=== PATIENT | female | born 2000 | race African-American/Black ===

== ENCOUNTER 2019-07-13 21:02 | Emergency (ER) | payer OTHER ==
[~2019-07-13] VITALS: Ht 157.5 cm; Wt 51.2 kg
[2019-07-13] MEDS ORDERED: VENTAER INH (21:36)
[2019-07-13] MEDS ORDERED: ONDANSETRON 4MG/2ML VIAL (J2405) IV ONE (22:45)
[2019-07-13] MEDS ORDERED: NS 1,000 ML IV ONE (22:45)
[2019-07-13 23:10] LABS: HEMATOCRIT 37.5 % (36.0-47.0); HEMOGLOBIN 12.8 g/dl (12.0-15.5); MEAN CORPUSCULAR HEMOGLOBIN 31.1 pg (27.0-33.0); MEAN CORPUSCULAR HGB CONC 34.1 g/dl (32.0-36.5); PLATELET COUNT, AUTOMATED 225 10^3/uL (150-450); RED BLOOD COUNT 4.12 10^6/uL (4.00-5.40); WHITE BLOOD COUNT 7.2 10^3/uL (4.0-10.0)
[2019-07-13 23:57] LABS: BLOOD UREA NITROGEN 11 MG/DL (7-18); CALCIUM LEVEL 9.7 MG/DL (8.5-10.1); CARBON DIOXIDE LEVEL 21 MEQ/L (21-32); CHLORIDE LEVEL 106 MEQ/L (98-107); CREATININE FOR GFR 0.53 MG/DL (0.55-1.30); GLUCOSE, FASTING 59 MG/DL (70-100); HCG, SERUM QUANTITATIVE 125407 MIU/ML; SODIUM LEVEL 138 MEQ/L (136-145)
[2019-07-14 00:43] LABS: APPEARANCE, URINE HAZY (CLEAR); BACTERIA, URINE AUTO NEGATIVE (NEGATIVE); BILIRUBIN, URINE AUTO NEGATIVE (NEGATIVE); BLOOD, URINE BLOOD NEGATIVE (NEGATIVE); COLOR, URINE YELLOW (YELLOW); GLUCOSE, URINE (UA) AUTO NEGATIVE (NEGATIVE); KETONE, URINE AUTO 2+ mg/dL (NEGATIVE); LEUKOCYTE ESTERASE, URINE AUTO NEGATIVE (NEGATIVE); MUCUS, URINE MODERATE (NEGATIVE); NITRITE, URINE AUTO NEGATIVE (NEGATIVE); PROTEIN, URINE AUTO 1+ mg/dL (NEGATIVE); RBC, URINE AUTO 2 /HPF (0-3); SPECIFIC GRAVITY URINE AUTO 1.028 (1.002-1.035); SQUAMOUS EPITHELIAL CELL UR AU 6 /HPF (0-6); UROBILINOGEN, URINE AUTO 0.2 mg/dL (0.0-2.0); WBC, URINE AUTO 1 /HPF (0-3)
--- NOTE | 2019-07-14 01:05 | REPVR ---
EXAM: US First Trimester, Transabdominal EXAM DATE/TIME: 07/13/2019 12:00 AM CLINICAL HISTORY: 19 years old, female; complicated by abdominal or pelvic pain; Generalized abdominal pain; First trimester; Gestational age or LMP: lmp 05/13/19; TECHNIQUE: Imaging protocol: Real-time transabdominal obstetrical ultrasound of the maternal pelvis and a first trimester , less than 14 weeks 0 days, with image documentation. COMPARISON: No relevant prior studies available. FINDINGS: GESTATION: Gestation: Single live intrauterine gestation. Heart rate: heart rate measures 171 beats per minute. Placenta: Unremarkable. No subchorionic bleed. Amniotic fluid: Amniotic and chorionic fluid are normal for gestational age. BIOMETRY: Estimated gestational age: Estimated gestational age is 9 weeks 4 days. [place]-Rump length: [place]-rump length is 2.8 cm. Estimated due date: Estimated due date is 02/11/2020. MATERNAL: Uterus: Unremarkable. No masses. Cervix: Unremarkable. Right adnexa: Right ovary measures 1.9 x 2.6 x 1.7 cm. No masses. Normal vascular flow. Left adnexa: Left ovary measures 3.0 x 3.4 x 2.0 cm. No masses. Normal vascular flow. Hypoechoic lesion in the left ovary measure 10 mm. Intraperitoneal: No intraperitoneal free fluid. IMPRESSION: 1. Single live intrauterine gestation. 2. Estimated gestational age is 9 weeks 4 days. 3. Estimated due date is 02/11/2020. 4. Hypoechoic lesion in the left ovary. Consistent with corpus luteum. No followup is necessary. 5. Recommend routine follow up full anatomical survey at 19-20 weeks gestational age. Electronically signed by: Cheyanne Vanessa On 07/14/2019 01:04:25 AM
[2019-07-14] MEDS ORDERED: FLAG500T PO (01:26)
[2019-07-14] MEDS ORDERED: metroNIDAZOLE (FLAGYL) 500 MG TAB PO ONE (01:30)
[2019-07-14 02:20] VITALS: BP 107/63
[2019-07-14 02:56] LABS: CHLAMYDIA DNA AMPLIFICATION NEGATIVE (NEGATIVE); GC DNA AMPLIFICATION NEGATIVE (NEGATIVE)
== END 2019-07-14 02:22 | disposition home or self-care (01) ==
LOC: M ED 21:02
DX: O23.591 Infection of other part of genital tract in pregnancy, first trimester (principal); O34.81 Maternal care for other abnormalities of pelvic organs, first trimester; Z3A.09 9 weeks gestation of pregnancy; Z86.19 Personal history of other infectious and parasitic diseases; Z87.59 Personal history of other complications of pregnancy, childbirth and the puerperium; O99.511 Diseases of the respiratory system complicating pregnancy, first trimester; Z87.891 Personal history of nicotine dependence
CPT/HCPCS: 76801; 80048; 81001; 84702; 85027; 87086; 87210; 87661; 93976; 96374; 99284; J2405

== ENCOUNTER → 2019-08-06 | Outpatient (CLI) | payer OTHER ==
[~2019-08-06] MED LIST: FLAG500T PO; VENTAER INH
[2019-08-06 19:16] LABS: BASO % 0.3 % (0.0-1.0); EOS # 0.1 10^3/uL (0.0-0.5); EOS % 0.7 % (0.0-3.0); HEMATOCRIT 33.4 % (36.0-47.0); HEMOGLOBIN 11.2 g/dl (12.0-15.5); LYMPH # 1.1 10^3/uL (1.5-5.0); LYMPH % 13.1 % (24.0-44.0); MEAN CORPUSCULAR HEMOGLOBIN 31.9 pg (27.0-33.0); MEAN CORPUSCULAR HGB CONC 33.5 g/dl (32.0-36.5); MEAN CORPUSCULAR VOLUME 95.2 fl (80.0-96.0); MONO # 0.5 10^3/uL (0.0-0.8); MONO % 5.6 % (0.0-5.0); PLATELET COUNT, AUTOMATED 255 10^3/uL (150-450); RED BLOOD COUNT 3.51 10^6/uL (4.00-5.40); WHITE BLOOD COUNT 8.7 10^3/uL (4.0-10.0)
[2019-08-06 20:56] LABS: CHLAMYDIA DNA AMPLIFICATION NEGATIVE (NEGATIVE); GC DNA AMPLIFICATION NEGATIVE (NEGATIVE)
[2019-08-09 11:23] LABS: HEPATITIS C VIRUS ABY INDEX 0.1 INDEX (<0.8); HIV 1&2 SCREEN CENTAUR NEGATIVE (NEGATIVE); RUBELLA IgG QUALITATIVE IMMUNE (IMMUNE)
== END ==
LOC: M SMT 13:00
PROVIDERS: ATTEND Obstetrics & Gynecology
DX: Z34.81 Encounter for supervision of other normal pregnancy, first trimester (principal); Z3A.00 Weeks of gestation of pregnancy not specified

== ENCOUNTER 2019-08-18 23:03 | Emergency (ER) | payer OTHER ==
[~2019-08-18] VITALS: Ht 157.5 cm; Wt 51.8 kg
[2019-08-18] MEDS ORDERED: PREN27TA3 PO (23:47)
[2019-08-18] MEDS ORDERED: IRON27TA2 PO (23:47)
[2019-08-18] MEDS ORDERED: ZOFR4TAB16 PO (23:47)
[2019-08-19 00:08] LABS: HCG, SERUM QUALITATIVE POSITIVE (NEGATIVE)
[2019-08-19] MEDS ORDERED: ACETAMINOPHEN 325 MG TAB PO ONE (00:15)
[2019-08-19] MEDS ORDERED: ONDANSETRON 4 MG ORAL DISINTEGRATING TAB (Q0162 PER 1MG) PO ONE (00:15)
[2019-08-19 00:19] LABS: BASO % 0.3 % (0.0-1.0); EOS # 0.1 10^3/uL (0.0-0.5); EOS % 1.6 % (0.0-3.0); HEMATOCRIT 32.3 % (36.0-47.0); HEMOGLOBIN 11.4 g/dl (12.0-15.5); LYMPH # 1.9 10^3/uL (1.5-5.0); LYMPH % 21.5 % (24.0-44.0); MEAN CORPUSCULAR HEMOGLOBIN 32.5 pg (27.0-33.0); MEAN CORPUSCULAR HGB CONC 35.3 g/dl (32.0-36.5); MONO # 0.6 10^3/uL (0.0-0.8); NEUTROPHILS # 6.2 10^3/uL (1.5-8.5); NEUTROPHILS % 69.2 % (36.0-66.0); PLATELET COUNT, AUTOMATED 204 10^3/uL (150-450); RED BLOOD COUNT 3.51 10^6/uL (4.00-5.40)
--- NOTE | 2019-08-19 00:59 | REPVR ---
PROCEDURE INFORMATION: Exam: US First Trimester, Transabdominal Exam date and time: 08/19/2019 12:06 AM Clinical history: 19 years old, female; complicated by abdominal or pelvic pain; Lower; First trimester; Gestational age or lmp: 13; ; Additional info: Pelvic cramping, 13w6d preg TECHNIQUE: Imaging protocol: Real-time transabdominal obstetrical ultrasound of the maternal pelvis and a first trimester , less than 14 weeks 0 days, with image documentation. COMPARISON: 1ST TRIMESTER US 07/13/2019 11:54 PM FINDINGS: GESTATION: Gestation: Single live intrauterine gestation. Heart rate: cardiac activity is detected at 162 beats per minute. Placenta: Placenta is anterior in location without evidence of previa. Amniotic fluid: Amniotic and chorionic fluid are normal for gestational age. BIOMETRY: Estimated gestational age: Estimated gestational age is 13 weeks and 6 days. Estimated due date: Estimated date of delivery is 02/17/2020. MATERNAL: Uterus: Unremarkable. Cervix: Unremarkable. Right adnexa: Right ovary is not visualized. Left adnexa: Left ovary is not visualized. Intraperitoneal: No intraperitoneal free fluid. IMPRESSION: Single live intrauterine gestation as above. Electronically signed by: Jaycob Vanessa On 08/19/2019 00:59:28 AM
[2019-08-19 01:27] VITALS: BP 102/58
== END 2019-08-19 01:28 | disposition home or self-care (01) ==
LOC: M ED 23:03
DX: O99.89 Other specified diseases and conditions complicating pregnancy, childbirth and the puerperium (principal); R10.2 Pelvic and perineal pain; Z87.59 Personal history of other complications of pregnancy, childbirth and the puerperium; O99.511 Diseases of the respiratory system complicating pregnancy, first trimester; Z3A.13 13 weeks gestation of pregnancy; Z79.899 Other long term (current) drug therapy
CPT/HCPCS: 76801; 81001; 84703; 85025; 99283; Q0162